=== PATIENT | female | born 1940 | race Caucasian/White ===

== ENCOUNTER 2019-07-15 09:56 | Outpatient (CLI) | payer OTHER, SELFPAY ==
--- NOTE | ~2019-07-15 | DEXA_ITS ---
Bone Density Report Name: Savannah Lyles Age: 79 Sex: Female Ethnicity: White Date of : 1940 Indication: postmenopausal; height loss; cancer; asthma or emphysema; hysterectomy; Referring Provider: JANINE, THEA Joseph Study: Bone densitometry was performed. Exam Date: July 15, 2019 Accession number: [id number] Bone Density: Region BMD T-score Z-score Classification AP Spine (L2, L3) 0.902 -1.4 1.2 Osteopenia Femoral Neck (Left) 0.750 -0.9 1.3 Normal Total Hip (Left) 1.050 0.9 2.9 Normal Total Hip Bilateral Avg 1.057 0.9 3.0 Normal Femoral Neck (Right) 0.761 -0.8 1.4 Normal Total Hip (Right) 1.062 1.0 3.0 Normal World Health Organization criteria for BMD impression classify patients as: Normal (T-score at or above -1.0), Osteopenia (T-score between -1.0 and -2.5), or Osteoporosis (T-score at or below -2.5). 10-year Fracture Risk(1): Major Osteoporotic Fracture 10% Hip Fracture 1.7% Reported Risk Factors: [place] (), Neck BMD=0.750, BMI=31.7 (1) FRAX(R) Version 3.08. Fracture probability calculated for an untreated patient. Fracture probability may be lower if the patient has received treatment. Clinical Information Provided by Patient: Has used the following medications: Vitamin D Has the following medical conditions: Asthma or Emphysema, Cancer, Hysterectomy Patient maximum height was 62 Menopause Age: 43 No regular weight bearing exercise Drinks caffeinated beverages Onset of menses at age 14 Number of children 2 Impression: The patient has low bone mass, based on the Total Spine T-score. The patient has an estimated ten-year risk of hip fracture of 1.7% and an estimated ten-year risk of major fracture of 10%, based on the WHO FRAX algorithm. Discussion: BONE DENSITY IS LOW AT ONE OR MORE SKELETAL SITES. This patient's lowest T-score is low at one or more skeletal sites. It meets the World Health Organization's (WHO) criteria for ?low bone mass? (T-score between -1.0 and -2.5). The patient's 10-year risk of fracture as calculated by FRAX is less than the threshold where pharmacological therapy is recommended by the National Osteoporosis Foundation (NOF). However, all treatment decisions require clinical judgment and consideration of individual patient factors, including patient preferences, comorbidities, previous drug use, risk factors not captured in the FRAX model (e.g., frailty, falls, vitamin D deficiency, increased bone turnover, interval significant decline in bone density) and possible under or overestimation of fracture risk by FRAX. The patient should follow a healthful lifestyle (good nutrition with adequate calcium and vitamin D, and appropriate weight-bearing exercise). Follow-Up: Consider repeating this study in 2 to 3 years to reassess this patient's status,
== END 2019-07-15 09:57 | disposition home or self-care (01) ==
LOC: ANHIMG 10:04
PROVIDERS: PCP Internal Medicine; Visit Provider Internal Medicine
DX: Z78.0 Asymptomatic menopausal state (principal); M85.88 Other specified disorders of bone density and structure, other site
CPT/HCPCS: 77080